=== PATIENT | female | born 2000 | race Caucasian/White ===

== ENCOUNTER 2020-03-12 10:00 | Emergency (ER) | payer OTHER, SELFPAY ==
[2020-03-12 10:08] VITALS: BP 121/75; PULSE 75; RESP 17; TEMP 36.4; O2SAT 98; BMI 23.1
--- NOTE | 2020-03-12 11:19 | PC.NURSE ---
patient complains of left neck and head pain after falling out of bed and hitting her left occipital area. Her head has no signs of contusion, redness, or swelling but is tender on palpation. Her left neck is also tender and radiates down to her left trapezeus muscle. She complains of nausea and headache as well as neck pain at a 6 out of 10 on a (0-10) scale. She stated that the lights are making her nauseated. I turned the lights down. She felt better.
--- NOTE | 2020-03-12 11:44 | ED_ITS ---
HPI - Fall General Chief Complaint: Fall Stated Complaint: neck pain/left shoulder/headache injury today Time Seen by Provider: 03/12/20 11:24 Source: patient Mode of arrival: Family Vehicle Limitations: no limitations History of Present Illness HPI Narrative: This is a 19-year-old female who comes to the emergency department after falling out of her bed. She normally sleeps in her boyfriends bed which is wider he is currently deployed so she [place] sleeping [place] bed [place]. She states last night she home over and fell off in between the wall and the bed. Patient states she did hit the floor. The beds about 3-4 ft off the ground, it is a linoleum or concrete floor covered with thin carpeting. Patient states that she was not knocked out. She did have a headache afterwards she has felt a little bit dizzy and mildly nauseated. She was feeling fine in terms of her neck until she rolled over in the middle of the night and then started having some pain on the left side of her neck. She states it is not midline. She has not any numbness, tingling or weakness. She has not had any issues with walking or ambulation. She has continued to have the slight dizziness and mild nausea. She states she can rotate her head to the left but it is uncomfortable when she goes beyond midline. She did take some Aleve with minimal improvement. She has not taken any other medications. She called the [facility] number and was referred to an urgent care or emergency department for evaluation. She states she has had prior concussions, she denies other medical issues currently. She is on Flagyl currently for BV. She denies any prior surgeries. No known drug allergies. No recent alcohol or illicit substances. Related Data Previous Rx's Medication Instructions Recorded cyclobenzaprine 10 mg PO TID PRN #10 tab 03/12/20 Allergies Allergy/AdvReac Type Severity Reaction Status Date / Time No Known Drug Allergies Allergy Verified 03/12/20 10:14 Review of Systems Review of Systems ROS Unobtainable: All systems reviewed & are unremarkable except as noted in HPI and below Patient History Social History Smoking Status: Current every day smoker Smoking Status: Current every day smoker tobacco type: vaping alcohol intake frequency: 0-2 drinks per day Substance Use Type: does not use Exam Narrative Exam Narrative: GEN: well nourished, well appearing female, alert and oriented x 3, patient appears to be in mild distress. HEENT: Atraumatic, pupils are equal round reactive to light, extraocular movements are intact, nares are clear, TMs are clear with no fluid, there is no conjunctival pallor. Throat is clear without any exudates, erythema, tonsillar enlargement or uvular deviation HEART: Regular rate and rhythm without murmur, clicks, rubs. LUNGS:Lungs clear to auscultation, no wheezes, rales, crackles, chest moves symmetrically ABD:bowel sounds normal, soft, non-tender, no guarding, rebound, rigidity, no masses noted, no hepatosplenomegaly BACK: No cervical, thoracic or lumbar vertebral point tenderness. Patient has normal range of motion except at cervical spine, patient prefers to hold her neck to the right she can straighten to midline but has pain when rotating to the left cut but she does not have any vertebral point tenderness and has more muscle spasm and tenderness in the left paraspinal and SCM region. Patient's gait is normal. Muscle strength is 5/5 in upper and lower extremities, sensation intact in all 4 extremities. 2+ radial pulses bilaterally. MSCL: Non-tender, no muscle atrophy, normal gait. NEURO:CN 2-12 intact, sensation normal SKIN: No erythema, ecchymosis, swelling or skin changes noted. Initial Vital Signs Initial Vital Signs: Vital Signs Temperature 97.6 F 03/12/20 10:08 Pulse Rate 75 03/12/20 10:08 Respiratory Rate 17 03/12/20 10:08 Blood Pressure 121/75 03/12/20 10:08 Pulse Oximetry 98 03/12/20 10:08 Scores GCS Luz coma scale eye opening: Spontaneous Luz coma scale verbal response: Orientated Luz coma scale motor response: Obey commands Luz coma scale total score: 15 Course Orders Ordered: ED Orders 03/12/20 11:54 XR cervical spine 2V or 3V Stat Discontinued Medications Acetaminophen (Tylenol) 975 mg PO NOW ONE Stop: 03/12/20 11:55 Last Admin: 03/12/20 12:00 Dose: 975 mg Documented by: KATE Cyclobenzaprine HCl (Flexeril) 10 mg PO NOW ONE Stop: 03/12/20 11:55 Last Admin: 03/12/20 12:00 Dose: 10 mg Documented by: KATE Vital Signs Vital signs: Vital Signs - 8 hr 03/12/20 10:08 03/12/20 13:03 Temperature 97.6 F Pulse Rate 75 58 L Respiratory Rate 17 12 Blood Pressure 121/75 121/56 L Pulse Oximetry 98 100 MDM - Fall Imaging Data Cspine xray: Radiologist's Impression: [address] [address] XRay Report Signed Patient: Anthony Dewey LMR#: [id number] : 2000Acct:[id number] Age/Sex: 19 / FDate of Service: 03/12/20 Loc: ED Accession Number: [id number] Procedure: XR cervical spine 2V or 3V Ordering Provider: Monet Casas D.O. PROCEDURE: XR CERVICAL SPINE 2V OR 3V INDICATIONS: left sided neck pain, fell from bed, no midline tenderness TECHNIQUE: 3 view(s) of the cervical spine were acquired. COMPARISON: None. FINDINGS: Bones: No fractures or dislocations to the T1 level. The lateral masses of C1 appear intact on the odontoid view. No suspicious bony lesions. Soft tissues: No prevertebral soft tissue swelling. IMPRESSION: No trauma found. Mild torticollis, on the frontal projection, at the upper cervical spine. Dictated by: Scott Huggins M.D. on 03/12/2020 at 12:28 Approved by: Scott Huggins M.D. on 03/12/2020 at 12:29 [facility] Narrative Medical decision making narrative: Patient comes in with left-sided neck pain, no midline vertebral body flag symptoms. With an painful to rotate her neck C- spine x-ray does not show any acute findings. At this time her exam findings and hpi do not suggest that we should CT image her based on [place] C-spine rules. Patient may have a mild concussion she did hit her head. She has had some moderate to mild improvement with Tylenol and Flexeril in the department. She does appear more comfortable at this time. Return precautions were discussed and patient feels comfortable with the plan. Discharge Plan Departure Patient Disposition: Home Clinical Impression: Concussion, Neck strain Discharge Date/Time: 03/12/20 13:05 Instructions: DI for Cervical Muscle Strain Activity Restrictions/Additional Instructions: Follow-up with your physician if symptoms are not resolving the next 7-10 days. You may continue to take Aleve as prescribed, you may also take Tylenol up to a 1000 mg every 8 hours as needed for pain. You may take Flexeril 1 tablet every 8 hours as needed for muscle spasm. This medication can make you sleepy do not drive, perform hazardous activities or make any major decisions while taking it. You may wish to verify with your work that your allowed to take this medication while at work. Return to the ER for passing out, severe headaches, new numbness, tingling or weakness, rapidly worsening neck pain, new swelling of the neck, bruising or redness, any chest pain or shortness of breath, persistent vomiting or other new or concerning symptoms. Prescriptions: New cyclobenzaprine 10 mg tablet 10 mg PO TID PRN (Reason: muscle spasm) Qty: 10 RF: 0 Stand Alone Forms: Work Release Note
--- NOTE | 2020-03-12 11:54 | DI.RAD.S_ITS ---
PROCEDURE: XR CERVICAL SPINE 2V OR 3V INDICATIONS: left sided neck pain, fell from bed, no midline tenderness TECHNIQUE: 3 view(s) of the cervical spine were acquired. COMPARISON: None. FINDINGS: Bones: No fractures or dislocations to the T1 level. The lateral masses of C1 appear intact on the odontoid view. No suspicious bony lesions. Soft tissues: No prevertebral soft tissue swelling. IMPRESSION: No trauma found. Mild torticollis, on the frontal projection, at the upper cervical spine. Dictated by: Scott Huggins M.D. on 03/12/2020 at 12:28 Approved by: Scott Huggins M.D. on 03/12/2020 at 12:29
[2020-03-12] MEDS: ACETAMINOPHEN 325 MG TABLET 975 MG PO (12:00)
[2020-03-12] MEDS: CYCLOBENZAPRINE 10 MG TABLET PO (12:00)
--- NOTE | 2020-03-12 12:02 | PC.NURSE ---
Patient medicated before the XR. She put her two earrings in a urine spec cup and that is with her.
[2020-03-12 13:03] VITALS: BP 121/56; PULSE 58; RESP 12; O2SAT 100
== END 2020-03-12 13:05 | disposition home or self-care (01) ==
PROVIDERS: Emergency Provider Emergency Medicine
DX: S06.0X9A Concussion with loss of consciousness of unspecified duration, initial encounter (principal); S16.1XXA Strain of muscle, fascia and tendon at neck level, initial encounter; W06.XXXA Fall from bed, initial encounter
CPT/HCPCS: 72040; 99283

== ENCOUNTER 2020-06-06 20:35 | Emergency (ER) | payer OTHER, SELFPAY ==
[2020-06-06 20:49] VITALS: BP 118/77; PULSE 57; RESP 18; TEMP 37; O2SAT 99; BMI 22.1
--- NOTE | 2020-06-06 21:58 | ED.FEMALEGU ---
HPI - Female Genitourinary General Chief complaint: Urogenital-Female Stated complaint: PH IMBALANCE Time Seen by Provider: 06/06/20 20:40 Source: patient Mode of arrival: Ambulatory Limitations: no limitations History of Present Illness HPI Narrative: 19F nonsmoker with no significant medical history presents with a few days of vaginal itching and discomfort. She denies any discharge or lower abdominal pain. She has an IUD and hasn't had periods in some time. She is sexually active with the same partner and largely practices safe sex. She denies fever or chills, she denies dysuria frequency or urgency. MD Complaint: possible STD Onset (ago): hour(s) Associated symptoms: denies other symptoms Related Data Previous Rx's Medication Instructions Recorded cyclobenzaprine 10 mg PO TID PRN #10 tab 03/12/20 doxycycline hyclate 100 mg PO BID 10 Days #20 tab 06/06/20 metronidazole [Flagyl] 500 mg PO Q8H 10 Days #30 tab 06/06/20 Allergies Allergy/AdvReac Type Severity Reaction Status Date / Time No Known Drug Allergies Allergy Verified 06/06/20 20:54 Review of Systems Constitutional Constitutional: Denies chills, Denies fatigue, Denies fever(s), Denies frequent falls, Denies lethargy and Denies weakness Eyes Eyes: Denies change in vision, Denies eye discharge, Denies irritation and Denies loss of vision ENT Ears, Nose, Mouth, and Throat: Denies change in voice, Denies dizziness, Denies neck pain, Denies sore throat and Denies throat swelling Cardiovascular Cardiovascular: Denies chest pain, Denies irregular heart rhythm, Denies lightheadedness, Denies palpitations, Denies dyspnea, Denies dyspnea on exertion and Denies orthopnea Respiratory Respiratory: Denies cough, Denies dyspnea, Denies dyspnea on exertion and Denies wheezing Gastrointestinal Gastrointestinal: Denies abdominal pain, Denies change in bowel habits, Denies diarrhea, Denies nausea and Denies vomiting Genitourinary Comments: vaginal itching Musculoskeletal Musculoskeletal: Denies neck pain and Denies numbness Integumentary/Breasts Skin/Breast: Denies pruritus, Denies erythema, Denies rash and Denies wounds Neurologic Neurologic: Denies behavioral changes, Denies confusion, Denies dizziness, Denies frequent falls, Denies loss of vision, Denies numbness and Denies weakness Psychiatric Psychiatric: Denies anxiety, Denies behavioral changes, Denies confusion, Denies depression, Denies homicidal ideation and Denies suicidal ideation Endocrine Endocrine: Denies fatigue, Denies flushing and Denies palpitations Hematologic/Lymphatic Hematologic/Lymphatic: Denies easy bruising Allergic/Immunologic Allergic/Immunologic: Denies urticaria, Denies throat swelling and Denies wheezing Patient History tobacco type: vaping alcohol intake frequency: 0-2 drinks per day Substance Use Type: does not use Exam Narrative Exam Narrative: GENERAL: 19 year old patient appears stated age. Well-nourished, well-developed patient, in mild distress. HEAD: Atraumatic. Normocephalic. EYES: Pupils equal round and reactive. Extraocular motions intact. No scleral icterus. No injection or drainage. ENT: Nose without bleeding, purulent drainage. Throat without erythema, tonsillar hypertrophy or exudate. Airway patent. NECK: Trachea midline. Non tender CARDIOVASCULAR: Regular rate and rhythm without murmurs, gallops, or rubs. RESPIRATORY: Clear to auscultation. Breath sounds equal bilaterally. No wheezes, rales, or rhonchi. GASTROINTESTINAL: Abdomen soft, non-tender, nondistended. : Pelvic notes some yellowish discharge, IUD in place. No bleeding. EXTREMITIES: No edema or joint tenderness. BACK: Nontender without deformity or crepitance. No flank tenderness. NEURO: AOx3. SKIN: No rash or erythema of visible areas Initial Vital Signs Initial Vital Signs: Vital Signs Temperature 98.6 F 06/06/20 20:49 Pulse Rate 57 L 06/06/20 20:49 Respiratory Rate 18 06/06/20 20:49 Blood Pressure 118/77 06/06/20 20:49 Pulse Oximetry 99 06/06/20 20:49 Course Orders Ordered: ED Orders 06/06/20 22:20 Chlamydia Gonorrhea PCR -URINE Stat Genital Culture Stat JENNY Prep Stat Vital Signs Vital signs: Vital Signs - 8 hr 06/06/20 20:49 06/06/20 22:47 Temperature 98.6 F Pulse Rate 57 L 61 Respiratory Rate 18 17 Blood Pressure 118/77 120/68 Pulse Oximetry 99 100 MDM - Female Genitourinary Lab Data Labs: Lab Results 06/06/20 Range/Units 22:20 Ur Chlamydia DNA (PCR) Not detected N gonorrhoeae DNA (PCR) Not detected Point of Care Testing Test Results Negative Urine Dip Bedside Urine Glucose Negative Bedside Urine Bilirubin - Negative Bedside Urine Ketone - Negative Urine Specific [place] 1.010 Bedside Urine Occult Blood - Negative Bedside Urine pH 6.0 Bedside Urine Protein - Negative Bedside Urine Urobilinogen - Negative Bedside Urine Nitrite - Negative Bedside Urine Leukocytes - Negative Esterase Discharge Plan Departure Patient Disposition: Home Clinical Impression: Acute cervicitis Discharge Date/Time: 06/06/20 22:49 Instructions: DI for Acute Cervicitis Activity Restrictions/Additional Instructions: *You have been diagnosed with [acute cervicitis, unlikely to be bacterial vaginosis, possibly gonorrhea or chlamydia, tests have been performed and prescriptions have been written] *What to do: *Take medications as directed *Follow up with your primary care provider in 2-3 days, call for an appointment. Let them know you were seen in the Emergency Department and that we ask that you be seen in follow up *Return to ER if you should have any new, worsening or concerning symptoms Prescriptions: New metronidazole [Flagyl] 500 mg tablet 500 mg PO Q8H 10 Days Qty: 30 RF: 0 doxycycline hyclate 100 mg tablet 100 mg PO BID 10 Days Qty: 20 RF: 0 No Action cyclobenzaprine 10 mg tablet 10 mg PO TID PRN (Reason: muscle spasm) Qty: 10 RF: 0
[2020-06-06 22:47] VITALS: BP 120/68; PULSE 61; RESP 17; O2SAT 100
[2020-06-07 00:14] LABS: Urine N gonorrhoeae NOT DETECTED
[2020-06-07 00:16] LABS: Urine Chlamydia NOT DETECTED
== END 2020-06-06 22:49 | disposition home or self-care (01) ==
PROVIDERS: Emergency Provider Emergency Medicine
DX: N72 Inflammatory disease of cervix uteri (principal); Z11.3 Encounter for screening for infections with a predominantly sexual mode of transmission
CPT/HCPCS: 81003; 81025; 87070; 87205; 87220; 87252; 87491; 87591; 99283

== ENCOUNTER 2021-04-20 11:36 | Emergency (ER) | payer OTHER, SELFPAY ==
[2021-04-20 11:42] VITALS: BP 123/78; PULSE 67; RESP 14; TEMP 36.7; O2SAT 99
--- NOTE | 2021-04-20 14:52 | CM.SWNOTE ---
Patient is a 20 year old female who was admitted to [facility] ED on 04/20/21 for Evaluation of Health. Pt has [employer] for insurance and her PCP is on [facility]. EMR was reviewed. Per MD, pt is medically stable but at risk for increased mental health issues due to high stress and risk factors. ACOUSTIC ENGINEER met bedside with pt in ED and pt with high risk factors due to her hx of suicidal ideation, increased psychosocial stressors, life challenges and she appears to have good insight into her mental health hx and symptoms and has actively sought support from therapist, medication management, and PCP for mental health stabilization. Due to pt's therapist/prescribing medication management being on leave for the next few weeks, recommendation of not having access to firearms/weapons is highly recommended until patient's scheduled next therapy appointment on May 07 2021 to further assess patient safety and stabilization. in agreement with assessment of risk and safety. Margaret Herrmann, GÉNESIS, [facility]
--- NOTE | 2021-04-20 15:39 | ED_ITS ---
HPI - Psych General Chief Complaint: Psychiatric Symptoms Stated Complaint: Mental Manuel Time Seen by Provider: 04/20/21 15:39 Source: patient Mode of arrival: Ambulatory History of Present Illness HPI Narrative: 20-year-old female comes in with complaint of chronic suicidal ideation. Patient has had chronic issues and she has had increasingly worsened sleep disruption lately. She has been given a prescription for Ambien but has not filled yet. Patient does have a counselor that she follows with on the [employer] but there a currently out of the office. She carries a firearm at work through the [employer] and is concerned that she might have an impulsive action. She does not wish to harm herself or others. She does not wish to currently carry a firearm. She contacted her command with through the medical service and was told they cannot clear her at this time but will also not these are from her duty there require she carry a firearm. Her counselor is currently gone until May 07. Related Data Previous Rx's Medication Instructions Recorded cyclobenzaprine 10 mg PO TID PRN #10 tab 03/12/20 Allergies Allergy/AdvReac Type Severity Reaction Status Date / Time No Known Drug Allergies Allergy Verified 06/06/20 20:54 Review of Systems Review of Systems ROS Unobtainable: All systems reviewed & are unremarkable except as noted in HPI and below Patient History Social History Smoking Status: Current every day smoker Smoking Status: Current every day smoker tobacco type: vaping alcohol intake frequency: 0-2 drinks per day Substance Use Type: does not use Exam Narrative Exam Narrative: GENERAL: Alert and oriented x three, well-nourished female in mild distress. HEENT: Head normocephalic, atraumatic, EOMI, pupils reactive, face symmetric, moist mucous membranes NECK: Supple, full range of motion CARDIOVASCULAR: Regular rate and rhythm without murmurs, rubs or gallops. RESPIRATORY: Breath sounds equal bilaterally, no wheezes rales or rhonchi. EXTREMITIES: Normal range of motion, no clubbing or edema. Neurovascularly intact NEUROLOGICAL: Cranial nerves II through XII grossly intact. Moving all extremities SKIN: Warm, dry, no petechiae, no rashes or lesions. PSYCH: Chronic suicidal thoughts, no intent, no hallucinations, no homicidal thoughts. Initial Vital Signs Initial Vital Signs: Vital Signs Temperature 98.1 F 04/20/21 11:42 Pulse Rate 67 04/20/21 11:42 Respiratory Rate 14 04/20/21 11:42 Blood Pressure 123/78 04/20/21 11:42 Pulse Oximetry 99 04/20/21 11:42 Course Orders Ordered: ED Orders 04/20/21 11:48 Consult to STATISTICAL METHODS TEACHER - It Support Engineer Stat Vital Signs Vital signs: Vital Signs - 8 hr 04/20/21 16:25 Pulse Rate 70 Respiratory Rate 18 Blood Pressure 112/72 Pulse Oximetry 99 MDM - Psych MDM Narrative Medical decision making narrative: 20-year-old female who was seen by our foster care social worker here. Patient is really requesting option to not carry a farm at work as she is having thoughts of harming herself but does not have any intent harm herself or others. She does feel unsafe having fire arms available to her. She does not have any in her living quarters. But her current job does require that she carries a farm. Patient has been in contact her counselor is currently gone until May 07. She has been attempting on her own to try to resolve this issue and has not been successful with her command. Discussed with foster care social worker and myself for both happy to provide patient with documentation that states she should not carry a firearm at this time. Discharge Plan Departure Patient Disposition: Home Clinical Impression: Suicidal thoughts Activity Restrictions/Additional Instructions: Follow up with your counselor once they have returned. You may return at any time for assistance. I would recommend trying the prescription for ambien to help regulate your sleep cycle. That sleep can be very important for your mental health. If you're feeling suicidal or having suicidal thoughts, contact the suicide hotline (this is also referral line for patient's for counseling and other resources you may contact take any time) . Return for having thoughts of harming yourself or others, hallucinations or other concerning symptoms. Prescriptions: No Action cyclobenzaprine 10 mg tablet 10 mg PO TID PRN (Reason: muscle spasm) Qty: 10 RF: 0 Stand Alone Forms: Work Release Note
[2021-04-20 16:25] VITALS: BP 112/72; PULSE 70; RESP 18; O2SAT 99
== END 2021-04-20 16:26 | disposition home or self-care (01) ==
PROVIDERS: Emergency Provider Emergency Medicine
DX: R45.851 Suicidal ideations (principal)
CPT/HCPCS: 99283